=== PATIENT | female | born 1985 | race Caucasian/White ===

== ENCOUNTER → 2017-03-01 | Outpatient (CLI) | payer OTHER ==
--- NOTE | 2017-03-01 10:44 | RAD ---
Exam performed: OB Ultrasound, first trimester. Indication: Unsure dates Date of Service: 03/01/17. Comparison: None available Technique: Transabdominal and transvaginal Findings: The uterus measures 10.0 x 6.0 x 5.0 cm. There is a single intrauterine gestational sac containing a live pole and yolk sac. The CRL measures 2.2 mm corresponding to 5 weeks and 5 days. Heart rate measures 87 bpm. This corresponds to a EDC of 11/06/17 Both ovaries are normal. The right ovary measures 3.7 x 2.8 x 2.6 cm , the left ovary measures 2.9 x 2.4 x 2.0 cm. 2.2 cm hemorrhagic cyst seen in the right ovary Impression: 1. Single intrauterine gestational sac. 2. Hemorrhagic right ovarian cyst containing a live pole of maturity 5 weeks and 5 days with a heart rate of 77 bpm
== END | disposition home or self-care (01) ==
LOC: US 08:20
PROVIDERS: ATTEND Family Medicine
DX: O34.81 Maternal care for other abnormalities of pelvic organs, first trimester (principal); Z3A.01 Less than 8 weeks gestation of pregnancy
CPT/HCPCS: 76801; 76817